=== PATIENT | female | born 1970 | race Caucasian/White ===

== ENCOUNTER 2018-03-10 21:18 | Emergency (ER) | payer OTHER ==
[~2018-03-10] VITALS: Ht 165.1 cm; Wt 63.5 kg
== END 2018-03-10 23:10 | disposition home or self-care (01) ==
LOC: ER 21:18
DX: S63.282A Dislocation of proximal interphalangeal joint of right middle finger, initial encounter (principal); W18.09XA Striking against other object with subsequent fall, initial encounter; Y93.89 Activity, other specified; Y92.488 Other paved roadways as the place of occurrence of the external cause; Y99.8 Other external cause status